=== PATIENT | male | born 1955 | race Caucasian/White ===

== ENCOUNTER 2023-01-05 13:54 | Observation (INO) ==
--- NOTE | 2023-01-05 14:32 | ED Triage Note ---
Date of Service January 05, 2023 History of Present Illness This patient was briefly evaluated while in triage. An abbreviated physical exam was performed. This patient is a 67-year-old Male who presents to the ED for evaluation of right arm and right leg numbness and tingling since 1150 today, no other neuro deficits, no anticoagulants, hx TIA 1 year ago. Pt describes feeling a little "lost and dizzy." stroke alert in triage, orders placed, pt transported to B1 Physical Exam CONSTITUTIONAL: in no acute pain or distress, resting comfortably SKIN: pink, warm, dry CARDIAC: regular rate and rhythm RESPIRATORY: in no respiratory distress, lungs clear to auscultation ABDOMEN:soft non-tender MSK: 5/5 strength in all limbs Neuro: right sided numbness and tingling upper and lower since 1150 today, no other focal deficits noted. Pt alert and oriented to time place and situation. Initial orders for labs and / or imaging were placed and patient was placed in the waiting area until a bed is available. Please see further documentation for the full ED course.
[2023-01-05] MEDS ORDERED: OPTIRAY 320 500ml IV ONE (14:52)
[2023-01-05 14:57] LABS: iSTAT Creatinine 1.3 mg/dl (0.6-1.3); iSTAT Hemoglobin 13.9 g/dl (14.0-18.0); iSTAT Ionized Calcium 1.2 mmol/l (1.12-1.32); iSTAT Potassium 3.9 mmol/L (3.3-5.0)
[2023-01-05 15:03] LABS: Basophils # (auto) 0.05 K/uL (0.00-0.20); Basophils % (auto) 0.5 %; Eosinophils # (auto) 0.25 K/uL (0.00-0.50); Eosinophils % (auto) 2.6 %; Hemoglobin 13.4 g/dl (14.0-18.0); Immature Granulocytes # (auto) 0.04 K/uL (0.01-0.20); Immature Granulocytes % (auto) 0.4 %; Lymphocytes # (auto) 2.68 K/uL (1.20-3.40); Lymphocytes % (auto) 28.3 %; Mean Corpuscular Hgb Conc 33.5 g/dL (32.0-36.0); Mean Corpuscular Volume 86.6 fL (80.0-100.0); Mean Platelet Volume 9.7 fL (9.4-12.4); Monocytes # (auto) 0.65 K/uL (0.11-0.59); Monocytes % (auto) 6.9 %; Neutrophils % (auto) 61.3 %; Platelet Count 225 K/uL (130-400); RDW Coefficient of Variation 12.4 % (11.5-14.5); RDW Standard Deviation 39.2 fL (36.4-46.3); Red Blood Count 4.62 M/uL (4.70-6.10); White Blood Count 9.47 K/ul (4.8-10.8)
--- NOTE | 2023-01-05 15:06 | CT Scan Report ---
CT ANGIOGRAPHY OF THE NECK WITH CONTRAST CLINICAL HISTORY: neuro deficit, acute stroke suspected COMPARISON STUDY: No previous studies for comparison. Technique: CT angiography of the carotid and vertebral arteries was obtained using Optiray and 3D rec onstruction on an independent workstation. NASCET criteria was utilized. Automated exposure control was utilized for the study. A dose lowering technique was utilized adhering to the principles of ALA RA. Findings: Emphysema is incidentally noted within the visualized lung apices. There is no cervical lym phadenopathy. No cervical spine fractures are noted. There is no stenosis or dissection within the bi lateral common carotid, cervical internal carotid or vertebral arteries. There is mild plaque within bilateral carotid bifurcations without stenosis. There is no aneurysm within the neck. IMPRESSION: 1. No stenosis or dissection within the bilateral common carotid, cervical internal carotid or verteb ral arteries. 2. Emphysema. ACT 112: Negative or not required by law. Electronically signed by: Cesario Danielson M.D. 01/05/2023 3:05 PM
--- NOTE | 2023-01-05 15:12 | CT Scan Report ---
CT angio head w con, CT head/brain wo con CLINICAL HISTORY: neuro deficit, acute stroke suspected TECHNIQUE: Contiguous axial CT images of the head were acquired from the base of the skull to the ronnie sanjiv without intravenous contrast administration. CT angiography of the head was performed following intravenous administration of iodinated contrast. Coronal and sagittal MIPS were obtained from the ax ial data set and were submitted for review. Automated dose lowering techniques and/or adjustment acc ording to patient size were utilized for this examination. All measurements were calculated based on NASCET criteria. CT DOSE: 1325.73 mGy.cm Comparison: None available at the time of this dictation. FINDINGS: CT head: There is no acute intracranial hemorrhage or evidence of acute territorial infarction. No sh ift of the midline structures, mass effect, or extra-axial abnormalities are shown. A few punctate re gions of decreased density may represent old lacunar infarcts and changes of microvascular ischemic w elke matter disease. CTA Head: The anterior and posterior cerebral circulations are patent. No hemodynamically significan t stenosis, aneurysm, dissection, or arteriovenous malformation is shown. IMPRESSION: There are a few punctate foci of decreased attenuation in the brain which may represent old infarcts, although punctate acute infarct cannot be entirely excluded. No significant vascular stenosis is see n. Assessment of stenosis of the internal carotid arteries is based on NASCET criteria. ACT 112: Negative or not required by law. Electronically signed by: Mark Tellez M.D. 01/05/2023 3:10 PM
[2023-01-05 15:14] LABS: INR 0.9 (0.9-1.1); Partial Thromboplastin Time 27.3 Seconds (21.0-31.0); Prothrombin Time 10.4 Seconds (9.0-12.0)
[2023-01-05 15:22] LABS: Albumin Level 4.3 gm/dl (3.4-5.0); Bilirubin,Total 0.4 mg/dl (0.2-1.0); Calcium 9.6 mg/dl (8.6-10.3); Magnesium 1.6 mg/dl (1.7-2.4); Potassium 3.9 mmol/L (3.5-5.1)
[2023-01-05 15:28] LABS: Albumin Globulin Ratio 1.6 (0.9-2); Creatinine Clr Calc Pharmacy 66.7 ml/min; Est GFR (African American) 65.9 ml/min; Est GFR (Non-African American) 56.9 ml/min; Globulin 2.7 gm/dl (2.5-4.0)
[2023-01-05 15:30] LABS: Troponin I High Sensitivity 6.6 pg/ml (0-20)
--- NOTE | 2023-01-05 15:40 | History & Physical Report ---
Date of Service January 05, 2023 Assessment & Plan (1) Stroke-like symptoms: Plan: Patient is 67 y/o M with PMH CVA in 2020, HTN, HLD, DM II, COPD, GERD, tobacco use presented to ER with complaint of right finger and right toe numbness started at 11:50 until 14:30 today. Currently with complete symptom resolution CT Head, CTA Head: There are a few punctate foci of decreased attenuation in the brain which may represent old infarcts, although punctate acute infarct cannot be entirely excluded. No significant vascular stenosis is seen. CTA Neck: No stenosis or dissection within the bilateral common carotid, cervical internal carotid or vertebral arteries. HS Troponin negative 06/12/2022 MRI brain: Bilateral cerebellar hemisphere small remote territorial infarcts. Subtle sulcal susceptibility overlying bilateral cerebral hemispheres, which may represent developing superficial siderosis 08/2020 MRI brain: Multifocal patchy foci of acute/early subacute ischemia left lentiform nucleus, frye radiata, left frontal subcortical white matter without significant mass effect or acute intracranial hemorrhage. Tele to monitor for arrhythmias Lipids, A1c, TSH in am MRI brain Echo with bubble study Aspiration, fall precautions PT/OT consult Continue aspirin, atorvastatin Neurology consult Pt has planned Loop recorder 01/25/[address] Coker to further assess for a-fib (2) Hypomagnesemia: Plan: Magnesium: 1.6 Replace and monitor (3) Diabetes mellitus, type II: Plan: Unknown A1c Hold metformin Novolog sliding scale per protocol (4) Hypertension: Plan: Continue lisinopril, lasix (5) COPD (chronic obstructive pulmonary disease): Plan: Emphysema No signs exacerbation Not on inhalers (6) Tobacco use: Plan: Smoking cessation recommended, is trying to cut back Nicotine patch (7) PTSD (post-traumatic stress disorder): Plan: Continue bupropion DVT Prophylaxis SCDs Full Code as per discussion with pt Follows with Dr Mata for routine care Pt was seen and care coordinated with Dr Luther. See addendum History of Present Illness Chief Complaint: Numbness Primary Care Provider: Sarabjit Mata MD Patient is 67 y/o M with PMH CVA in 2020, HTN, HLD, DM II, COPD, GERD, tobacco use presented to ER with complaint of right finger and right toe numbness. History obtained from patient and outpatient chart review. Patient reports today had sudden onset of tingling/numbness sensation to all of right fingers and all of his toes on right foot that started at 11:50. Patient reports paresthesia symptoms continued until 14:30 today. Patient states today while standing he did feel a little "woozy". Denies any associated headache, syncope, vision changes, extremity weakness, speech changes. Reports intermittent left sided chest pain over past 6 months that can occur at rest or exertion. Pain described as sharp and lasts approximately 5-10 minutes and resolves. Followed with cardiology, Dr [facility] [place] and had negative stress test. States had episode left chest discomfort this morning that lasted 10 minutes and resolved and not associated with SOB, N/V, palpitations. No recurrent CP. Has chronic cough, intermittently productive sputum. denies increased cough or sputum production. Denies fever/chills, diaphoresis, N/V/D/C, LOPEZ, vision changes, neck pain, SOB, palpitations, rhinorrhea, abdominal pain, extremity weakness, extremity edema, rashes, urinary symptoms. Outpatient chart review: 11/26/2022 had negative dobutamine stress echo for ischemia. EF: 67%. Is to have implanted loop recorder 01/25/[address] Coker to further assess for a-fib. 06/12/2022 MRI brain: Bilateral cerebellar hemisphere small remote territorial infarcts. Subtle sulcal susceptibility overlying bilateral cerebral hemispheres, which may represent developing superficial siderosis 08/21/2020 MRI brain: Multifocal patchy foci of acute/early subacute ischemia left lentiform nucleus, frye radiata, left frontal subcortical white matter without significant mass effect or acute intracranial hemorrhage. Allergies Allergy/AdvReac Type Severity Reaction Status Date / Time No Known Allergies Allergy Verified 01/05/23 14:58 Home Medications Medication Instructions Recorded Confirmed Type bupropion HCl 150 mg tablet,12 hr 150 mg PO BID 11/24/18 01/05/23 History sustained-release aspirin 81 mg tablet,delayed 81 mg PO DAILY 01/05/23 01/05/23 History release atorvastatin 80 mg tablet (Lipitor) 40 mg PO HS 01/05/23 01/05/23 History cholecalciferol (vitamin D3) 25 25 mcg PO DAILY 01/05/23 01/05/23 History mcg (1,000 unit) capsule (Vitamin D3) diclofenac sodium 1 % topical gel 2 g topical TID PRN Pain 01/05/23 01/05/23 History furosemide 20 mg tablet (Lasix) 10 mg PO DAILY 01/05/23 01/05/23 History lisinopril 40 mg tablet 40 mg PO DAILY 01/05/23 01/05/23 History metformin 500 mg tablet 500 mg PO BID 01/05/23 01/05/23 History Past Med/Surg History Medical History (Updated 01/05/23 @ 17:03 by Joan Huitron PA-C) HLD (hyperlipidemia) GERD (gastroesophageal reflux disease) Diabetes mellitus, type II Tobacco use COPD (chronic obstructive pulmonary disease) Lumbosacral facet joint syndrome Spinal stenosis of lumbar region Lumbago Lumbosacral radiculopathy Lumbosacral spondylosis CVA (cerebral vascular accident) PTSD (post-traumatic stress disorder) Surgical History History of colonoscopy Social History Smoking Status: Current every day smoker Tobacco Type: Cigarettes Age Started Using Tobacco: 19; packs per day: 1; Hx Alcohol Use: No Hx Substance Use: No marital status: Single Current Living Situation: Alone current occupational status: retired Feels Safe at Home: Yes Review of Systems Review of Systems: All systems reviewed & are unremarkable except as noted in HPI & below Physical Exam Physical Exam: General: no distress, WDWN Head: normocephalic, atraumatic Eyes: PERRL, EOM's intact, conjunctiva non-injected, anicteric ENT: normal inspection external ears, nose, mucous membranes moist Neck: supple, trachea midline Lungs: clear, no respiratory distress, no wheezing/rhonchi/rales CV: RRR, no murmur, no pretibial edema Abd: normal BS, soft, non-tender Ext: no cyanosis, no calf tenderness Neuro: A&O x 3, normal affect, EOMs intact. No nystagmus, facial sensation is intact and symmetric, face is strong and symmetric, hearing grossly intact, soft palate elevates symmetrically, no dysarthria, shoulder shrug intact, tongue is midline, normal movement, no fasciculations, strength 5/5 throughout bilateral upper and lower extremities Skin: warm, dry Results & Data Results & Data Vital Signs (Past 12 Hours) Vital Signs Temp Pulse Pulse Resp BP BP Pulse Ox 01/05/23 15:25 72 16 119/66 96 01/05/23 15:02 80 20 140/76 97 01/05/23 14:54 86 01/05/23 14:44 01/05/23 14:40 83 20 131/79 96 01/05/23 14:25 36.6 C 88 16 135/77 95 O2 Del Method 01/05/23 15:25 Room Air 01/05/23 15:02 Room Air 01/05/23 14:54 01/05/23 14:44 Room Air 01/05/23 14:40 Room Air 01/05/23 14:25 Room Air Laboratory Results Short CBC 01/05/23 Range/Units 14:42 WBC 9.47 (4.8-10.8) K/ul Hgb 13.4 L (14.0-18.0) g/dl Hct 40.0 L (42.0-52.0) % Plt Count 225 (130-400) K/uL BMP 01/05/23 14:42 Sodium 136 Potassium 3.9 Chloride 102 Carbon Dioxide 26 BUN 13 Creatinine 1.30 Glucose 151 H Calcium 9.6 Liver Function 01/05/23 Range/Units 14:42 Total Bilirubin 0.4 (0.2-1.0) mg/dl AST 16 (13-39) U/L ALT 18 (7-52) U/L Alkaline Phosphatase 104 (34-104) U/L Albumin 4.3 (3.4-5.0) gm/dl Diagnostic Findings Head CT 01/05/23 14:33 CT angio head w con, CT head/brain wo con CLINICAL HISTORY: neuro deficit, acute stroke suspected TECHNIQUE: Contiguous axial CT images of the head were acquired from the base of the skull to the vertex without intravenous contrast administration. CT angiography of the head was performed following intravenous administration of iodinated contrast. Coronal and sagittal MIPS were obtained from the axial data set and were submitted for review. Automated dose lowering techniques and/or adjustment according to patient size were utilized for this examination. All measurements were calculated based on NASCET criteria. CT DOSE: 1325.73 mGy.cm Comparison: None available at the time of this dictation. FINDINGS: CT head: There is no acute intracranial hemorrhage or evidence of acute territorial infarction. No shift of the midline structures, mass effect, or extra-axial abnormalities are shown. A few punctate regions of decreased density may represent old lacunar infarcts and changes of microvascular ischemic white matter disease. CTA Head: The anterior and posterior cerebral circulations are patent. No hemod ynamically significant stenosis, aneurysm, dissection, or arteriovenous malformation is shown. IMPRESSION: There are a few punctate foci of decreased attenuation in the brain which may represent old infarcts, although punctate acute infarct cannot be entirely excluded. No significant vascular stenosis is seen. Assessment of stenosis of the internal carotid arteries is based on NASCET criteria. ACT 112: Negative or not required by law. Electronically signed by: Mark Tellez M.D. 01/05/2023 3:10 PM Head CTA 01/05/23 14:33 CT angio head w con, CT head/brain wo con CLINICAL HISTORY: neuro deficit, acute stroke suspected TECHNIQUE: Contiguous axial CT images of the head were acquired from the base of the skull to the vertex without intravenous contrast administration. CT angiography of the head was performed following intravenous administration of iodinated contrast. Coronal and sagittal MIPS were obtained from the axial data set and were submitted for review. Automated dose lowering techniques and/or adjustment according to patient size were utilized for this examination. All measurements were calculated based on NASCET criteria. CT DOSE: 1325.73 mGy.cm Comparison: None available at the time of this dictation. FINDINGS: CT head: There is no acute intracranial hemorrhage or evidence of acute territorial infarction. No shift of the midline structures, mass effect, or extra-axial abnormalities are shown. A few punctate regions of decreased density may represent old lacunar infarcts and changes of microvascular ischemic white matter disease. CTA Head: The anterior and posterior cerebral circulations are patent. No hemodynamically significant stenosis, aneurysm, dissection, or arteriovenous malformation is shown. IMPRESSION: There are a few punctate foci of decreased attenuation in the brain which may represent old infarcts, although punctate acute infarct cannot be entirely excluded. No significant vascular stenosis is seen. Assessment of stenosis of the internal carotid arteries is based on NASCET criteria. ACT 112: Negative or not required by law. Electronically signed by: Mark Tellez M.D. 01/05/2023 3:10 PM Neck CTA 01/05/23 14:33 CT ANGIOGRAPHY OF THE NECK WITH CONTRAST CLINICAL HISTORY: neuro deficit, acute stroke suspected COMPARISON STUDY: No previous studies for comparison. Technique: CT angiography of the carotid and vertebral arteries was obtained using Optiray and 3D reconstruction on an independent workstation. NASCET criteria was utilized. Automated exposure control was utilized for the study. A dose lowering technique was utilized adhering to the principles of ALARA. Findings: Emphysema is incidentally noted within the visualized lung apices. There is no cervical lymphadenopathy. No cervical spine fractures are noted. There is no stenosis or dissection within the bilateral common carotid, cervical internal carotid or vertebral arteries. There is mild plaque within bilateral carotid bifurcations without stenosis. There is no aneurysm within the neck. IMPRESSION: 1. No stenosis or dissection within the bilateral common carotid, cervical internal carotid or vertebral arteries. 2. Emphysema. ACT 112: Negative or not required by law. Electronically signed by: Cesario Danielson M.D. 01/05/2023 3:05 PM ECG Additional Comments: sinus rhythm, rate 85, no significant ST changes per my interpretation Supervising Physician Co-Signing Physician Notes I have seen and discussed the case with the collaborating ISAAC. I agree with the above H&P. I have reviewed and confirmed the patients medical history, the findings on physical examination, and the patients diagnosis and treatment plan with [facility] and agree with the information documented. In short, Mr. Lock is a 67 year old gentleman with history of CVA who presented to ED due to neuro symptoms characterized by numbness/tinging in right fingers and toes. T he symptoms resolved upon evaluation. Patient has history of transient neuro symptoms, and recent MRI in 05/2022 revealed from scattered infarcts and changes described as "superficial siderosis" PE was unremarkable for any neurodeficits and patient was observed ambulating without any gait disturbance appreciated. #Transient Neurosymptoms -Neurology consult ASA, Statin -Monitor on telemetry -MRI to compare to prior study Rest of plan as above :3 COMPARISON: BRAIN MR WITHOUT CONTRAST dated 08/21/2020. FINDINGS: Motion artifact. Bilateral cerebellar hemisphere small remote territorial infarcts, new compared with 08/2020 brain MR. Patchy and confluent cerebral white matter T2/FLAIR hyperintense foci are present, which are nonspecific but compatible with moderate microvascular ischemic changes, and which are greater in extent/number than expected for stated age; these foci are increased compared with 08/2020. Subtle sulcal susceptibility overlying bilateral cerebral hemispheres, new compared with August 2020, which may represent developing superficial siderosis. The ventricles and sulci are otherwise symmetrically enlarged, representing chronic volume loss. The brain parenchyma is otherwise normal in signal, without hemorrhage, mass effect, midline shift, or mass lesion. No restricted diffusion is present. The basal cisterns are patent. No abnormal intra- or extra-axial fluid collections are present. Intracranial arterial flow voids are suboptimally evaluated due to slice selection artifact and motion artifact, but are otherwise grossly normal. The soft tissues of the head are grossly unremarkable. Bilateral orbits are grossly normal. The cranium and skull base are grossly normal. Trace (< 3 mm) bilateral ethmoid air cell and bilateral maxillary sinus mucosal thickening. The included paranasal sinuses are otherwise clear. Moderate left mastoid opacification; no right mastoid air cell or bilateral middle ear opacification i s present. IMPRESSION IMPRESSION: 1. No acute intracranial abnormality. No restricted diffusion concerning for acute CVA. 2. Bilateral cerebellar hemisphere small remote territorial infarcts, new compared with 08/2020 brain MR. 3. Patchy/confluent nonspecific cerebral white matter T2/FLAIR hyperintense foci, compatible with moderate microvascular ischemic changes, greater in extent/number than expected for stated age. Foci are increased compared with 08/2020. 4. Subtle sulcal susceptibility overlying bilateral cerebral hemispheres, new compared with August 2020, which may represent developing superficial siderosis. 5. Chronic brain parenchymal volume loss. This case was submitted to the Radiology Pouncing Machine Operator (BILLING AND ACCOUNTING STAFF ASSISTANT): Unexpected or Indeterminate Result.
--- NOTE | 2023-01-05 15:56 | Electrocardiogram Report ---
Test Reason : Blood Pressure : / mmHG Vent. Rate : 085 BPM Atrial Rate : 085 BPM P-R Int : 160 ms QRS Dur : 110 ms QT Int : 402 ms P-R-T Axes : 035 054 054 degrees QTc Int : 478 ms Normal sinus rhythm Normal ECG No previous ECGs available Confirmed by Huseyin Fuentes ([id number]) on 01/05/2023 3:56:32 PM Referred By: REFERRED SELF Confirmed By:Huseyin Fuentes
[2023-01-05] MEDS ORDERED: ASPIRIN 81 MG CHEW PO ONE (16:29)
[2023-01-05] MEDS ORDERED: POLYETHYLENE (MIRALAX) 17 GM PACK PO PRN (18:29)
[2023-01-05] MEDS ORDERED: CARBOHYDRATES FOR HYPOGLYCEMIA PO PRN (18:29)
[2023-01-05] MEDS ORDERED: PHARMACIST DISCHARGE MED REC CONSULT PRN (18:29)
[2023-01-05] MEDS ORDERED: MAGNESIUM SULFATE / D5W 1 GM/100 ML BAG IV ONE (18:29)
[2023-01-05] MEDS ORDERED: GLUCAGON FOR INJ 1 MG VIAL SQ PRN (18:29)
[2023-01-05] MEDS ORDERED: GLUCOSE 10 TAB/TUBE PO PRN (18:29)
[2023-01-05] MEDS ORDERED: ONDANSETRON INJ 2 MG/ML 2 ML VIAL IV PRN (18:29)
[2023-01-05] MEDS ORDERED: DEXTROSE 50% 50 ML SYRINGE IV PRN (18:29)
[2023-01-05] MEDS ORDERED: GLUCOSE 40% GEL 15 GM TUBE PO PRN (18:29)
[2023-01-05] MEDS ORDERED: ACETAMINOPHEN 325 MG TAB PO PRN (18:29)
[2023-01-05] MEDS ORDERED: MAGNESIUM SULFATE 1GM / D5W BAG IV ONE (18:33)
[2023-01-05] MEDS ORDERED: NICOTINE 21 MG/24 HR TDSY TD ONE (18:33)
[2023-01-05] MEDS: NICOTINE 21 MG/24 HR TDSY TD SCH (18:34)
--- NOTE | 2023-01-05 20:39 | ED Triage Note ---
Date of Service January 05, 2023 History of Present Illness This patient was briefly evaluated while in triage. An abbreviated physical exam was performed. This patient is a 67-year-old Male who presents to the ED for evaluation of []. Physical Exam Initial orders for labs and / or imaging were placed and patient was placed in the waiting area until a bed is available. Please see further documentation for the full ED course.
[2023-01-05] MEDS: INSULIN ASPART PER UNIT CHARGE SC SCH (20:51)
[2023-01-05] MEDS ORDERED: ATORVASTATIN 40 MG TAB PO SCH (21:00)
[2023-01-05] MEDS: buPROPion SR 150 MG TABCR PO SCH (21:10)
--- NOTE | 2023-01-05 21:19 | Emergency Department Note ---
History of Present Illness General Chief complaint: Neuro Symptoms/Deficit Stated complaint: RT HAND/FOOT NUMBNESS, HYPERTENSION, DIZZY Time Seen by Provider: 01/05/23 14:39 History of Present Illness Provider complaint: Numbness Maximum Pain Intensity: 0 67-year-old male presents emergency department for numbness. Patient reports that at 11:45 AM he was driving and started having numbness over his right upper and right lower extremities. No difficulty walking. No difficulty talking. No changes in vision. No headache. No blood thinners. History of TIA stroke and OR. Home Medications Medication Instructions Recorded Confirmed Type bupropion HCl 150 mg tablet,12 hr 150 mg PO BID 11/24/18 01/05/23 History sustained-release aspirin 81 mg tablet,delayed 81 mg PO DAILY 01/05/23 01/05/23 History release atorvastatin 80 mg tablet (Lipitor) 40 mg PO HS 01/05/23 01/05/23 History cholecalciferol (vitamin D3) 25 25 mcg PO DAILY 01/05/23 01/05/23 History mcg (1,000 unit) capsule (Vitamin D3) diclofenac sodium 1 % topical gel 2 g topical TID PRN Pain 01/05/23 01/05/23 History furosemide 20 mg tablet (Lasix) 10 mg PO DAILY 01/05/23 01/05/23 History lisinopril 40 mg tablet 40 mg PO DAILY 01/05/23 01/05/23 History metformin 500 mg tablet 500 mg PO BID 01/05/23 01/05/23 History Allergies Allergy/AdvReac Type Severity Reaction Status Date / Time No Known Allergies Allergy Verified 01/05/23 14:58 Past Med/Surg History Medical History HLD (hyperlipidemia) GERD (gastroesophageal reflux disease) Diabetes mellitus, type II Tobacco use COPD (chronic obstructive pulmonary disease) Lumbosacral facet joint syndrome Spinal stenosis of lumbar region Lumbago Lumbosacral radiculopathy Lumbosacral spondylosis CVA (cerebral vascular accident) PTSD (post-traumatic stress disorder) Surgical History History of colonoscopy Social History Smoking Status: Current every day smoker Tobacco Type: Cigarettes Age Started Using Tobacco: 19; packs per day: 1; Do You Dip or Chew Tobacco: No; Hx Alcohol Use: No Hx Substance Use: No Preferred Language: Jamaican Communication Ability: Effective Security Business Analyst Required: No marital status: Single Current Living Situation: Alone current occupational status: retired Other Information That Helps Us Care for You: No Feels Safe at Home: Yes Safety Concerns: Feels Safe At This Time Assistive Devices: CPAP and Glasses Physical Exam Vital Signs Vital Signs - 24 hr 01/05/23 14:25 01/05/23 14:40 01/05/23 14:44 Temperature 36.6 C Temperature Source Temporal Artery Scan Pulse Rate 88 Pulse Rate [Apical] 83 Respiratory Rate 16 20 Respiratory Effort / Characteristics Non-Labored Spontaneous Respiratory Depth Normal Respiratory Pattern Regular Blood Pressure 135/77 Blood Pressure [Left Arm] 131/79 Blood Pressure Mean 96 Blood Pressure Mean [Left Arm] 96 Pulse Oximetry 95 96 Oxygen Delivery Method Room Air Room Air Room Air Sepsis Recent Fever Within 48 Hours No Sepsis New/Unexplained Change in Mental Status No Sepsis Action Taken by Nursing No Action Required 01/05/23 14:54 01/05/23 15:02 01/05/23 15:25 Temperature Temperature Source Pulse Rate 86 Pulse Rate [Apical] 80 72 Respiratory Rate 20 16 Respiratory Effort / Characteristics Non-Labored Spontaneous Respiratory Depth Normal Respiratory Pattern Regular Blood Pressure Blood Pressure [Left Arm] 140/76 119/66 Blood Pressure Mean Blood Pressure Mean [Left Arm] 97 83 Pulse Oximetry 97 96 Oxygen Delivery Method Room Air Room Air Sepsis Recent Fever Within 48 Hours Sepsis New/Unexplained Change in Mental Status Sepsis Action Taken by Nursing Physical Exam GENERAL: He is oriented to person, place, and time. He appears well-developed and well-nourished. He does not appear distressed. HENT: Exam performed. - Head: Normocephalic and atraumatic. - Right Ear: External ear normal. No mastoid erythema - Left Ear: External ear normal. No mastoid erythema - Mouth/Throat: The oropharynx is clear and moist. No trismus in the jaw. No dental abscesses or uvula swelling. No oropharyngeal exudate or tonsillar abscesses. EYES: Conjunctivae and EOM are normal. Pupils are equal, round, and reactive to light. Right eye exhibits no discharge. Left eye exhibits no discharge. No scleral icterus. NECK: Normal range of motion. Neck supple. No JVD present. No spinous process tenderness present. CV: Normal rate, regular rhythm, normal heart sounds and intact distal pulses. There is no peripheral edema. Palpable radial pulses bue. PULM/CHEST: Effort normal and breath sounds normal. No respiratory distress. No stridor. He has no wheezes. He has no rales. MUSC/SKEL: Normal range of motion. There is no peripheral edema, tenderness or deformity. NEURO: He is alert and oriented to person, place, and time. He has normal strength. No cranial nerve deficit or sensory deficit. Coordination and gait normal. GCS eye subscore is 4. GCS verbal subscore is 5. GCS motor subscore is 6. Cerebellar tests wnl. NIHSS: 0 SKIN: Skin is warm and dry. He is not diaphoretic. PSYCH: He has a normal mood and affect. Behavior is normal. Judgment and thought content normal. Course Course 1439: The patient was evaluated in room B1. A complete history and physical exam was performed Cardiac monitoring: An order was placed for continuous cardiac monitoring. The monitor shows a rate of 80 with sinus rhythm interpreted by nc 1520: Vital signs stable. Imaging shows: There are a few punctate foci of decreased attenuation in the brain which may represent old infarcts, although punctate acute infarct cannot be entirely excluded. No significant vascular stenosis is seen. Will be admitted to the hospital service for stroke work-up and MRI. Currently NIHSS 0. Unsure if the patient had a TIA versus an old stroke. The case will not be given as patient has NIH stroke scale 0 and his symptoms improved. Administered Medications Atorvastatin Calcium (Atorvastatin 40 Mg Tab) 40 mg PO HS FELIX Stop: 02/04/23 20:59 Last Admin: 01/05/23 21:10 Dose: 40 mg Documented By: JORGE Bupropion HCl (Bupropion Sr 150 Mg Tabcr) 150 mg PO BID FELIX Stop: 02/04/23 20:59 Last Admin: 01/05/23 21:10 Dose: 150 mg Documented By: JORGE Insulin Aspart (Insulin Aspart Per Unit Charge) 0 units SC ACHS FELIX Stop: 02/04/23 20:59 Last Admin: 01/05/23 20:51 Dose: Not Given Documented By: JORGE Co-signed By: DANIEL Nicotine (Nicotine 21 Mg/24 Hr Tdsy) 21 mg TD QAM FELIX Stop: 02/04/23 18:28 Last Admin: 01/05/23 18:34 Dose: Not Given Documented By: ASW Discontinued Medications Aspirin (Aspirin 81 Mg Chew) 243 mg PO ONE ONE Stop: 01/05/23 16:30 Last Admin: 01/05/23 16:34 Dose: 243 mg Documented By: ASW Magnesium Sulfate/Dextrose (Magnesium Sulfate / D5w) 1 gm in 100 mls @ 50 mls/hr IV ONE ONE Stop: 01/05/23 20:28 Last Admin: 01/05/23 18:34 Dose: Not Given Documented By: ASW Ioversol (Optiray 320 500ml) 108 ml IV ONCE ONE Stop: 01/05/23 14:53 Last Admin: 01/05/23 14:55 Dose: 108 ml Documented By: BAMBI Magnesium Sulfate/Dextrose (Magnesium Sulfate 1gm / D5w Bag) Confirm Administered Dose 1 gm IV .STK-MED ONE Stop: 01/05/23 18:34 Last Admin: 01/05/23 18:34 Dose: 1 gm Documented By: ASW Nicotine (Nicotine 21 Mg/24 Hr Tdsy) Confirm Administered Dose 21 mg TD .STK-MED ONE Stop: 01/05/23 18:34 Last Admin: 01/05/23 18:34 Dose: 21 mg Documented By: ALBERTOW Medical Decision Making Laboratory Data Attestation: I reviewed the patient's lab results. 01/05/23 14:42 01/05/23 14:42 Lab Results 01/05/23 01/05/23 01/05/23 Range/Units 14:40 14:42 14:45 WBC 9.47 (4.8-10.8) K/ul RBC 4.62 L (4.70-6.10) M/uL Hgb 13.4 L (14.0-18.0) g/dl POC Hgb 13.9 L (14.0-18.0) g/dl Hct 40.0 L (42.0-52.0) % POC Hct 41 L (42-52) % MCV 86.6 (80.0-100.0) fL MCH 29.0 (25.0-34.0) pg MCHC 33.5 (32.0-36.0) g/dL RDW Std Deviation 39.2 (36.4-46.3) fL RDW Coeff of Alem 12.4 (11.5-14.5) % Plt Count 225 (130-400) K/uL MPV 9.7 (9.4-12.4) fL Immature Gran % (Auto) 0.4 % Neut % (Auto) 61.3 % Lymph % (Auto) 28.3 % Wilcox % (Auto) 6.9 % Eos % (Auto) 2.6 % Baso % (Auto) 0.5 % Neut # (Auto) 5.80 (1.40-6.50) K/uL Lymph # (Auto) 2.68 (1.20-3.40) K/uL Wilcox # (Auto) 0.65 H (0.11-0.59) K/uL Eos # (Auto) 0.25 (0.00-0.50) K/uL Baso # (Auto) 0.05 (0.00-0.20) K/uL Immature Gran # (Auto) 0.04 (0.01-0.20) K/uL PT 10.4 (9.0-12.0) Seconds INR 0.9 (0.9-1.1) APTT 27.3 (21.0-31.0) Seconds PTT Ratio 1.0 POC Sodium 137 (135-144) mmol/L Sodium 136 (136-145) mmol/L POC Potassium 3.9 (3.3-5.0) mmol/L Potassium 3.9 (3.5-5.1) mmol/L POC Chloride 100 L (101-112) mmol/L Chloride 102 (98-107) mmol/L Carbon Dioxide 26 (21-32) mmol/L POC Total CO2 23 L (24-31) mmol/L Anion Gap 8 (3-11) POC Anion Gap 18.0 (16-25) mmol/L POC BUN 13 (7-18) mg/dl BUN 13 (6-23) mg/dl Creatinine 1.30 (0.6-1.4) mg/dl POC Creatinine 1.3 (0.6-1.3) mg/dl Est Cr Clr Drug Dosing 66.7 ml/min Est GFR ( Amer) 65.9 ml/min Est GFR (Non-Af Amer) 56.9 ml/min BUN/Creatinine Ratio 10.0 (10-20) Glucose 151 H (70-99(Fasting)) mg/dl POC Glucose 164 H (70-99) mg/dl POC Glucose (other) 153 H (70-99) mg/dl Calcium 9.6 (8.6-10.3) mg/dl POC Ioniz Calcium Marni 1.20 (1.12-1.32) mmol/l Magnesium 1.6 L (1.7-2.4) mg/dl Total Bilirubin 0.4 (0.2-1.0) mg/dl AST 16 (13-39) U/L ALT 18 (7-52) U/L Alkaline Phosphatase 104 (34-104) U/L Troponin I High Sens 6.6 (0-20) pg/ml Total Protein 7.0 (6.0-8.3) gm/dl Albumin 4.3 (3.4-5.0) gm/dl Globulin 2.7 (2.5-4.0) gm/dl Albumin/Globulin Ratio 1.6 (0.9-2) Blood Type O Positive Antibody Screen NEGATIVE Imaging Data Radiologist's Impression: Head CT 01/05/23 14:33 CT angio head w con, CT head/brain wo con CLINICAL HISTORY: neuro deficit, acute stroke suspected TECHNIQUE: Contiguous axial CT images of the head were acquired from the base of the skull to the vertex without intravenous contrast administration. CT angiography of the head was performed following intravenous administration of iodinated contrast. Coronal and sagittal MIPS were obtained from the axial data set and were submitted for review. Automated dose lowering techniques and/or adjustment according to patient size were utilized for this examination. All measurements were calculated based on NASCET criteria. CT DOSE: 1325.73 mGy.cm Comparison: None available at the time of this dictation. FINDINGS: CT head: There is no acute intracranial hemorrhage or evidence of acute territorial infarction. No shift of the midline structures, mass effect, or extra-axial abnormalities are shown. A few punctate regions of decreased density may represent old lacunar infarcts and changes of microvascular ischemic white matter disease. CTA Head: The anterior and posterior cerebral circulations are patent. No hemodynamically significant stenosis, aneurysm, dissection, or arteriovenous malformation is shown. IMPRESSION: There are a few punctate foci of decreased attenuation in the brain which may represent old infarcts, although punctate acute infarct cannot be entirely excluded. No significant vascular stenosis is seen. Assessment of stenosis of the internal carotid arteries is based on NASCET criteria. ACT 112: Negative or not required by law. Electronically signed by: Mark Tellez M.D. 01/05/2023 3:10 PM Head CTA 01/05/23 14:33 CT angio head w con, CT head/brain wo con CLINICAL HISTORY: neuro deficit, acute stroke suspected TECHNIQUE: Contiguous axial CT images of the head were acquired from the base of the skull to the vertex without intravenous contrast administration. CT angiography of the head was performed following intravenous administration of iodinated contrast. Coronal and sagittal MIPS were obtained from the axial data set and were submitted for review. Automated dose lowering techniques and/or adjustment according to patient size were utilized for this examination. All measurements were calculated based on NASCET criteria. CT DOSE: 1325.73 mGy.cm Comparison: None available at the time of this dictation. FINDINGS: CT head: There is no acute intracranial hemorrhage or evidence of acute territorial infarction. No shift of the midline structures, mass effect, or extra-axial abnormalities are shown. A few punctate regions of decreased density may represent old lacunar infarcts and changes of microvascular ischemic white matter disease. CTA Head: The anterior and posterior cerebral circulations are patent. No hemodynamically significant stenosis, aneurysm, dissection, or arteriovenous malformation is shown. IMPRESSION: There are a few punctate foci of decreased attenuation in the brain which may represent old infarcts, although punctate acute infarct cannot be entirely excluded. No significant vascular stenosis is seen. Assessment of stenosis of the internal carotid arteries is based on NASCET criteria. ACT 112: Negative or not required by law. Electronically signed by: Mark Tellez M.D. 01/05/2023 3:10 PM Neck CTA 01/05/23 14:33 CT ANGIOGRAPHY OF THE NECK WITH CONTRAST CLINICAL HISTORY: neuro deficit, acute stroke suspected COMPARISON STUDY: No previous studies for comparison. Technique: CT angiography of the carotid and vertebral arteries was obtained using Optiray and 3D reconstruction on an independent workstation. NASCET criteria was utilized. Automated exposure control was utilized for the study. A dose lowering technique was utilized adhering to the principles of ALARA. Findings: Emphysema is incidentally noted within the visualized lung apices. There is no cervical lymphadenopathy. No cervical spine fractures are noted. There is no stenosis or dissection within the bilateral common carotid, cervical internal carotid or vertebral arteries. There is mild plaque within bilateral carotid bifurcations without stenosis. There is no aneurysm within the neck. IMPRESSION: 1. No stenosis or dissection within the bilateral common carotid, cervical internal carotid or vertebral arteries. 2. Emphysema. ACT 112: Negative or not required by law. Electronically signed by: Cesario Danielson M.D. 01/05/2023 3:05 PM ECG Data Attestation: I personally reviewed and interpreted this ECG as follows: Rate (beats per minute): 85 Rhythm: + normal sinus ECG Intervals/blocks: + Normal QRS, + Normal MN and + Normal QT-c ECG ST segments: + Normal ST segments [facility] Narrative 1439: The patient was evaluated in room B1. A complete history and physical exam was performed Cardiac monitoring: An order was placed for continuous cardiac monitoring. The monitor shows a rate of 80 with sinus rhythm interpreted by me 1520: Vital signs stable. Imaging shows: There are a few punctate foci of decreased attenuation in the brain which may represent old infarcts, although punctate acute infarct cannot be entirely excluded. No significant vascular stenosis is seen. Will be admitted to the hospital service for stroke work-up and MRI. Currently NIHSS 0. Unsure if the patient had a TIA versus an old stroke. The case will not be given as patient has NIH stroke scale 0 and his symptoms improved. Impression & Plan Stroke-like symptoms Discharge Plan Visit Data Chief Complaint: Neuro Symptoms/Deficit Stated Complaint: RT HAND/FOOT NUMBNESS, HYPERTENSION, DIZZY ED Provider: Mauro Vang Discharge Problem: Stroke-like symptoms Patient Disposition: Admitted As Inpatient Discharge Instructions Interventions: ED Discharge Assessment Last Done: 01/05/23 18:30
[2023-01-06 05:17] LABS: BUN Creatinine Ratio 11.2 (10-20); Calcium 9.4 mg/dl (8.6-10.3); Chol HDL Ratio 3.7 (0-5); Creatinine Clr Calc Pharmacy 69.4 ml/min; Est GFR (African American) 69.1 ml/min; Est GFR (Non-African American) 59.6 ml/min; Magnesium 1.9 mg/dl (1.7-2.4); Potassium 4.1 mmol/L (3.5-5.1)
[2023-01-06 05:30] LABS: Hematocrit (blood only) 41.1 % (42.0-52.0); Hemoglobin 13.6 g/dl (14.0-18.0); Mean Corpuscular Hemoglobin 28.9 pg (25.0-34.0); Mean Corpuscular Hgb Conc 33.1 g/dL (32.0-36.0); Mean Corpuscular Volume 87.3 fL (80.0-100.0); Mean Platelet Volume 9.9 fL (9.4-12.4); Platelet Count 213 K/uL (130-400); RDW Coefficient of Variation 12.2 % (11.5-14.5); RDW Standard Deviation 39.1 fL (36.4-46.3); Red Blood Count 4.71 M/uL (4.70-6.10); White Blood Count 9.24 K/ul (4.8-10.8)
[2023-01-06 05:31] LABS: Thyroid Stimulating Hormone 4.917 uIu/ml (0.300-4.500)
[2023-01-06 06:06] LABS: T4 Free Thyroxine 0.74 ng/dl (0.61-1.60)
[2023-01-06 07:20] LABS: Estimated Average Glucose 151 mg/dl; Hemoglobin A1C 6.9 % (4.5-5.6)
--- NOTE | 2023-01-06 07:58 | Magnetic Resonance Report ---
MR brain wo con CLINICAL HISTORY: stroke symptoms TECHNIQUE: Multiplanar and multisequence MR images of the brain were obtained without intravenous con trast. Comparison: Comparison is made to CTA head and neck 01/05/2023 FINDINGS: No abnormal restricted diffusion is identified. Foci of T2 and FLAIR hyperintensity are noted in the paraventricular areas consistent with chronic small vessel ischemic disease. Ex vacuo ventriculomegal y and sulcal enlargement is noted compatible with diffuse volume loss. No mass is seen. There is no m ass effect or midline shift. There is no evidence of acute intraparenchymal hemorrhage. No extra axia l fluid collections are seen. The corpus callosum, pituitary gland, and cerebellar tonsils appear nima ssly unremarkable. Flow voids of the major intracranial arterial vessels are identified. The imaged portions of the para nasal sinuses, mastoid air cells, and orbits are unremarkable. IMPRESSION: No acute abnormality and in particular no evidence of acute infarct. ACT 112: Negative or not required by law. Electronically signed by: Mark Tellez M.D. 01/06/2023 7:57 AM
[2023-01-06] MEDS: buPROPion SR 150 MG TABCR PO SCH (08:18)
[2023-01-06] MEDS: INSULIN ASPART PER UNIT CHARGE SC SCH ×2 (08:39→11:44)
[2023-01-06] MEDS: NICOTINE 21 MG/24 HR TDSY TD SCH (08:40)
[2023-01-06] MEDS ORDERED: FUROSEMIDE 20 MG TAB PO SCH (09:00)
[2023-01-06] MEDS ORDERED: CHOLECALCIFEROL 1,000 UNITS 25 MCG TAB PO SCH (09:00)
[2023-01-06] MEDS ORDERED: lisinopril 40 MG TAB PO SCH (09:00)
[2023-01-06] MEDS ORDERED: ASPIRIN 81 MG ECTAB PO SCH (09:00)
--- NOTE | 2023-01-06 11:07 | Neurology Consultation ---
Date of Consultation January 06, 2023 Assessment & Plan (1) Stroke-like symptoms: Suspect recrudescence of old stroke symptoms in the setting of URI CTA with mild athero , no significant stenosis MRI with no acute ischemicchanges However it shows extensive microangiopathy with no atrial enlargement , discussed with the patient to watch for palpitation , for shortness of breath Plan Recommend risk factor modifications Recommend risk factor modifications, HTN , DM , HLP Smoking cessation was stressed\ Echocardiogram with no atrial enlargement , discussed with the patient to watch for palpitation , for shortness of breath Continue aspirin 325mg and atorvastatin 40mg as outpatient Consider a Ziopatch and follow up with neurology as outpatient Telehealth Consultation Telehealth Information Telehealth Information: I performed this visit using a real-time telehealth connection between my location and the patients location ([facility]). After connecting through interactive tele-video, patient was identified by name and date of and/or wristband check.Patient (or authorized healthcare solar sales representative and assessor) was informed that this was a telemedicine visit and it was being conducted confidentially over secure lines. My office door was closed and no one else was present in the room with me.Patient (or authorized healthcare solar sales representative and assessor) provided consent to proceed with the visit, expressed an understanding of privacy and security of the telemedicine visit, and gave permission to have a hospital solar sales representative and assessor in the room in order to assist with the visit and to conduct portions of the visit, as needed. I informed the patient (or authorized healthcare solar sales representative and assessor) that I reviewed their record and presented the opportunity for them to ask any questions regarding the visit today. The patient agreed to participate. History of Present Illness Reason for Consultation: stroke-like symptoms Requesting Physician: bandar Schumacher MD Attending Physician: Winsome Johnson MD History of Present Illness The patient is a 67 Y.o male patient with a PMH of chronic tobacco abuse , COPD, HTN , HLP , DM , hx of prior strokes who presents with right sided numbness that has resolved since admission . The patient states that it reolved within 2 hours. Remembers the same symptoms but much worse with his prior stroke in 2020. He denies any associated weakness this time , he denies any associted incoordination , no visual changes,no gait difficulties Reports that it happened in the setting of a URI that he has been dealing with for the last several days. Allergies Allergy/AdvReac Type Severity Reaction Status Date / Time No Known Allergies Allergy Verified 01/05/23 14:58 Home Medications Medication Instructions Recorded Confirmed Type bupropion HCl 150 mg tablet,12 hr 150 mg PO BID 11/24/18 01/05/23 History sustained-release aspirin 81 mg tablet,delayed 81 mg PO DAILY 01/05/23 01/05/23 History release atorvastatin 80 mg tablet (Lipitor) 40 mg PO HS 01/05/23 01/05/23 History cholecalciferol (vitamin D3) 25 25 mcg PO DAILY 01/05/23 01/05/23 History mcg (1,000 unit) capsule (Vitamin D3) diclofenac sodium 1 % topical gel 2 g topical TID PRN Pain 01/05/23 01/05/23 History furosemide 20 mg tablet (Lasix) 10 mg PO DAILY 01/05/23 01/05/23 History lisinopril 40 mg tablet 40 mg PO DAILY 01/05/23 01/05/23 History metformin 500 mg tablet 500 mg PO BID 01/05/23 01/05/23 History Patient History Medical History HLD (hyperlipidemia) GERD (gastroesophageal reflux disease) Diabetes mellitus, type II Tobacco use COPD (chronic obstructive pulmonary disease) Lumbosacral facet joint syndrome Spinal stenosis of lumbar region Lumbago Lumbosacral radiculopathy Lumbosacral spondylosis CVA (cerebral vascular accident) PTSD (post-traumatic stress disorder) Surgical History History of colonoscopy Social History Smoking Status: Current every day smoker Tobacco Type: Cigarettes Age Started Using Tobacco: 19; packs per day: 1; Do You Dip or Chew Tobacco: No; Hx Alcohol Use: No Hx Substance Use: No Preferred Language: Portuguese Communication Ability: Effective Tool Repair Technician Required: No marital status: Single Current Living Situation: Alone current occupational status: retired Other Information That Helps Us Care for You: No Feels Safe at Home: Yes Safety Concerns: Feels Safe At This Time Assistive Devices: CPAP and Glasses Review of Systems Constitutional: Patient denies weight loss, fever, chills, and night sweats Eyes: Patient denies change in vision, tearing, pain, and redness ENT: Patient denies pain, bleeding, does have rhinorrhea and congestion , and dysphagia Cardiovascular: Patient denies chest pain, palpitation, dyspnea at rest, and dyspnea with exertion Respiratory: Patient denies shortness of breath, cough, wheezing, and productive cough GI: Patient denies reflux, pain, constipation, and diarrhea Skin: Patient denies rash, dryness, and itching Allergies/Immune System: Patient denies rhinorrhea, seasonal allergies, reaction to current MEDS, and joint swelling Endocrine: Patient denies weight loss, weight gain, temperature intolerance, and excessive thirst Neurological: All negative unless mentioned in the HPI Physical Exam General NEUROLOGIC EXAMINATION: Mental Status:alert, oriented to time, place, person, normal recent memory, normal remote memory, normal attention span, normal concentration, normal language and normal fund of knowledge Cranial Nerves: CN 2 - no visual defect on confrontation and pupils round, equal, reactive to light CN 3, 4, 6 - extra-ocular movements intact and no nystagmus CN 5 - facial sensation intact CN 7 - no facial asymmetry CN 8 - intact hearing CN 9, 10 - palate symmetric, normal gag CN 11 - good shoulder shrug CN 12 - tongue midline MOTOR: Strength was at least antigravity throughout, Pronator drift was absent and There were no abnormal movements SENSATION: intact and symmetric to pinprick, light touch, vibration and joint position GAIT: stable, no ataxia and can perform tandem walking COORDINATION: no ataxia with finger to nose testing and heel to candelario testing REFLEXES: cannot assess over telemedicine NIH Stroke Scale: 1a. Level of Consciousness: alert = 0 1b. LOC Questions: (month, age): both correct = 0 1c. LOC Commands (open and close eyes, make fist and let go using non-paretic hand): obeys both correctly = 0 2. Best Gaze (eyes open and patient follows examiner's finger or face): normal = 0 3. Visual (visual threat or finger counting in each quadrant): no loss = 0 4. Facial Palsy (show teeth, raise eye brows and squeeze eyes shut, or grimace symmetry in a comatose patient): normal = 0 5a. Motor Arm (extend arm (palms down) to 90 degrees and score drift/movement (10 seconds) - Left: no drift = 0 5b. Motor Arm: (extend arm (palms down) to 90 degrees and score drift/movement (10 seconds) - Right: no drift = 0 6a. Motor Leg (elevate leg 30 degrees and score drift/ movement (5 seconds) - Left: no drift = 0 6b. Motor Leg (elevate leg 30 degrees and score drift/ movement (5 seconds) - Right: no drift = 0 7. Limb Ataxia (finger to nose, heel down candelario): absent = 0 8. Sensory (pin prick to face, arm, trunk and leg, compare side to side): normal = 0 9. Best Language: no aphasia = 0 10. Dysarthria (evaluate speech clarity by patient repeating listed words): normal articulation = 0 11. Extinction and Inattention: no neglect = 0 Total: 0 Results & Data Vital Signs (Past 12 Hours) Vital Signs Pulse Pulse Resp BP Pulse Ox O2 Del Method 01/06/23 08:17 92 H 20 147/85 H 95 Room Air 01/06/23 01:34 82 20 134/80 94 Room Air 01/06/23 00:08 81 20 96 01/06/23 00:00 86 Laboratory Results Laboratory Results - last 24 hr 01/05/23 01/05/23 01/05/23 14:40 14:42 14:43 WBC 9.47 RBC 4.62 L Hgb 13.4 L POC Hgb Hct 40.0 L POC Hct MCV 86.6 MCH 29.0 MCHC 33.5 RDW Std Deviation 39.2 RDW Coeff of Alem 12.4 Plt Count 225 MPV 9.7 Immature Gran % (Auto) 0.4 Neut % (Auto) 61.3 Lymph % (Auto) 28.3 [place] % (Auto) 6.9 Eos % (Auto) 2.6 Baso % (Auto) 0.5 Neut # (Auto) 5.80 Lymph # (Auto) 2.68 [place] # (Auto) 0.65 H Eos # (Auto) 0.25 Baso # (Auto) 0.05 Immature Gran # (Auto) 0.04 PT 10.4 INR 0.9 APTT 27.3 PTT Ratio 1.0 POC Sodium Sodium 136 POC Potassium Potassium 3.9 POC Chloride Chloride 102 Carbon Dioxide 26 POC Total CO2 Anion Gap 8 POC Anion Gap POC BUN BUN 13 Creatinine 1.30 POC Creatinine Est Cr Clr Drug Dosing 66.7 Est GFR ( Amer) 65.9 Est GFR (Non-Af Amer) 56.9 BUN/Creatinine Ratio 10.0 Glucose 151 H POC Glucose 164 H POC Glucose (other) Estimat Average Glucose Hemoglobin A1c Calcium 9.6 POC Ioniz Calcium Marni Magnesium 1.6 L Total Bilirubin 0.4 AST 16 ALT 18 Alkaline Phosphatase 104 Troponin I High Sens 6.6 Total Protein 7.0 Albumin 4.3 Globulin 2.7 Albumin/Globulin Ratio 1.6 Triglycerides Cholesterol LDL Cholesterol, Calc VLDL Cholesterol, Calc HDL Cholesterol Cholesterol/HDL Ratio TSH Free T4 Hepatitis C Ab (EIA) Pending Blood Type O Positive Antibody Screen NEGATIVE 01/05/23 01/05/23 01/06/23 14:45 20:48 04:41 WBC 9.24 RBC 4.71 Hgb 13.6 L POC Hgb 13.9 L Hct 41.1 L POC Hct 41 L MCV 87.3 MCH 28.9 MCHC 33.1 RDW Std Deviation 39.1 RDW Coeff of Alem 12.2 Plt Count 213 MPV 9.9 Immature Gran % (Auto) Neut % (Auto) Lymph % (Auto) [place] % (Auto) Eos % (Auto) Baso % (Auto) Neut # (Auto) Lymph # (Auto) [place] # (Auto) Eos # (Auto) Baso # (Auto) Immature Gran # (Auto) PT INR APTT PTT Ratio POC Sodium 137 Sodium 135 L POC Potassium 3.9 Potassium 4.1 POC Chloride 100 L Chloride 102 Carbon Dioxide 25 POC Total CO2 23 L Anion Gap 8 POC Anion Gap 18.0 POC BUN 13 BUN 14 Creatinine 1.25 POC Creatinine 1.3 Est Cr Clr Drug Dosing 69.4 Est GFR ( Amer) 69.1 Est GFR (Non-Af Amer) 59.6 BUN/Creatinine Ratio 11.2 Glucose 123 H POC Glucose 106 H POC Glucose (other) 153 H Estimat Average Glucose 151 Hemoglobin A1c 6.9 H Calcium 9.4 POC Ioniz Calcium Marni 1.20 Magnesium 1.9 Total Bilirubin AST ALT Alkaline Phosphatase Troponin I High Sens Total Protein Albumin Globulin Albumin/Globulin Ratio Triglycerides 130 Cholesterol 149 LDL Cholesterol, Calc 83 VLDL Cholesterol, Calc 26 HDL Cholesterol 40 Cholesterol/HDL Ratio 3.7 TSH 4.917 H Free T4 0.74 Hepatitis C Ab (EIA) Blood Type Antibody Screen 01/06/23 07:38 WBC RBC Hgb POC Hgb Hct POC Hct MCV MCH MCHC RDW Std Deviation RDW Coeff of Alem Plt Count MPV Immature Gran % (Auto) Neut % (Auto) Lymph % (Auto) [place] % (Auto) Eos % (Auto) Baso % (Auto) Neut # (Auto) Lymph # (Auto) [place] # (Auto) Eos # (Auto) Baso # (Auto) Immature Gran # (Auto) PT INR APTT PTT Ratio POC Sodium Sodium POC Potassium Potassium POC Chloride Chloride Carbon Dioxide POC Total CO2 Anion Gap POC Anion Gap POC BUN BUN Creatinine POC Creatinine Est Cr Clr Drug Dosing Est GFR ( Amer) Est GFR (Non-Af Amer) BUN/Creatinine Ratio Glucose POC Glucose 125 H POC Glucose (other) Estimat Average Glucose Hemoglobin A1c Calcium POC Ioniz Calcium Marni Magnesium Total Bilirubin AST ALT Alkaline Phosphatase Troponin I High Sens Total Protein Albumin Globulin Albumin/Globulin Ratio Triglycerides Cholesterol LDL Cholesterol, Calc VLDL Cholesterol, Calc HDL Cholesterol Cholesterol/HDL Ratio TSH Free T4 Hepatitis C Ab (EIA) Blood Type Antibody Screen Diagnostic Findings Head CT 01/05/23 14:33 CT angio head w con, CT head/brain wo con CLINICAL HISTORY: neuro deficit, acute stroke suspected TECHNIQUE: Contiguous axial CT images of the head were acquired from the base of the skull to the vertex without intravenous contrast administration. CT angiography of the head was performed following intravenous administration of iodinated contrast. Coronal and sagittal MIPS were obtained from the axial data set and were submitted for review. Automated dose lowering techniques and/or adjustment according to patient size were utilized for this examination. All measurements were calculated based on NASCET criteria. CT DOSE: 1325.73 mGy.cm Comparison: None available at the time of this dictation. FINDINGS: CT head: There is no acute intracranial hemorrhage or evidence of acute territorial infarction. No shift of the midline structures, mass effect, or ext ra-axial abnormalities are shown. A few punctate regions of decreased density may represent old lacunar infarcts and changes of microvascular ischemic white matter disease. CTA Head: The anterior and posterior cerebral circulations are patent. No hemodynamically significant stenosis, aneurysm, dissection, or arteriovenous malformation is shown. IMPRESSION: There are a few punctate foci of decreased attenuation in the brain which may represent old infarcts, although punctate acute infarct cannot be entirely excluded. No significant vascular stenosis is seen. Assessment of stenosis of the internal carotid arteries is based on NASCET criteria. ACT 112: Negative or not required by law. Electronically signed by: Mark Tellez M.D. 01/05/2023 3:10 PM Head CTA 01/05/23 14:33 CT angio head w con, CT head/brain wo con CLINICAL HISTORY: neuro deficit, acute stroke suspected TECHNIQUE: Contiguous axial CT images of the head were acquired from the base of the skull to the vertex without intravenous contrast administration. CT angiography of the head was performed following intravenous administration of iodinated contrast. Coronal and sagittal MIPS were obtained from the axial data set and were submitted for review. Automated dose lowering techniques and/or adjustment according to patient size were utilized for this examination. All measurements were calculated based on NASCET criteria. CT DOSE: 1325.73 mGy.cm Comparison: None available at the time of this dictation. FINDINGS: CT head: There is no acute intracranial hemorrhage or evidence of acute territorial infarction. No shift of the midline structures, mass effect, or extra-axial abnormalities are shown. A few punctate regions of decreased density may represent old lacunar infarcts and changes of microvascular ischemic white matter disease. CTA Head: The anterior and posterior cerebral circulations are patent. No hemodynamically significant stenosis, aneurysm, dissection, or arteriovenous malformation is shown. IMPRESSION: There are a few punctate foci of decreased attenuation in the brain which may represent old infarcts, although punctate acute infarct cannot be entirely excluded. No significant vascular stenosis is seen. Assessment of stenosis of the internal carotid arteries is based on NASCET criteria. ACT 112: Negative or not required by law. Electronically signed by: Mark Tellez M.D. 01/05/2023 3:10 PM Neck CTA 01/05/23 14:33 CT ANGIOGRAPHY OF THE NECK WITH CONTRAST CLINICAL HISTORY: neuro deficit, acute stroke suspected COMPARISON STUDY: No previous studies for comparison. Technique: CT angiography of the carotid and vertebral arteries was obtained using [employer] and 3D reconstruction on an independent workstation. NASCET criteria was utilized. Automated exposure control was utilized for the study. A dose lowering technique was utilized adhering to the principles of ALARA. Findings: Emphysema is incidentally noted within the visualized lung apices. There is no cervical lymphadenopathy. No cervical spine fractures are noted. There is no stenosis or dissection within the bilateral common carotid, cervical internal carotid or vertebral arteries. There is mild plaque within bilateral carotid bifurcations without stenosis. There is no aneurysm within the neck. IMPRESSION: 1. No stenosis or dissection within the bilateral common carotid, cervical internal carotid or vertebral arteries. 2. Emphysema. ACT 112: Negative or not required by law. Electronically signed by: Cesario Danielson M.D. 01/05/2023 3:05 PM Brain MRI 01/05/23 18:29 MR brain wo con CLINICAL HISTORY: stroke symptoms TECHNIQUE: Multiplanar and multisequence MR images of the brain were obtained without intravenous contrast. Comparison: Comparison is made to CTA head and neck 01/05/2023 FINDINGS: No abnormal restricted diffusion is identified. Foci of T2 and FLAIR hyperintensity are noted in the paraventricular areas consistent with chronic small vessel ischemic disease. Ex vacuo ventriculomegaly and sulcal enlargement is noted compatible with diffuse volume loss. No mass is seen. There is no mass effect or midline shift. There is no evidence of acute intraparenchymal hemorrhage. No extra axial fluid collections are seen. The corpus callosum, pituitary gland, and cerebellar tonsils appear grossly unremarkable. Flow voids of the major intracranial arterial vessels are identified. The imaged portions of the paranasal sinuses, mastoid air cells, and orbits are unremarkable. IMPRESSION: No acute abnormality and in particular no evidence of acute infarct. ACT 112: Negative or not required by law. Electronically signed by: Mark Tellez M.D. 01/06/2023 7:57 AM
[2023-01-06] MEDS ORDERED: STROKE PATIENT DISCHARGE STA (13:17)
--- NOTE | 2023-01-06 13:21 | Discharge Summary ---
Date of Service January 06, 2023 Admission HPI Per Admitting Provider Patient is 67 y/o M with PMH CVA in 2020, HTN, HLD, DM II, COPD, GERD, tobacco use presented to ER with complaint of right finger and right toe numbness. History obtained from patient and outpatient chart review. Patient reports today had sudden onset of tingling/numbness sensation to all of right fingers and all of his toes on right foot that started at 11:50. Patient reports paresthesia symptoms continued until 14:30 today. Patient states today while standing he did feel a little "woozy". Denies any associated headache, syncope, vision changes, extremity weakness, speech changes. Reports intermittent left sided chest pain over past 6 months that can occur at rest or exertion. Pain described as sharp and lasts approximately 5-10 minutes and resolves. Followed with cardiology, Dr [facility] [place] and had negative stress test. States had episode left chest discomfort this morning that lasted 10 minutes and resolved and not associated with SOB, N/V, palpitations. No recurrent CP. Has ch ronic cough, intermittently productive sputum. denies increased cough or sputum production. Denies fever/chills, diaphoresis, N/V/D/C, LOPEZ, vision changes, neck pain, SOB, palpitations, rhinorrhea, abdominal pain, extremity weakness, extremity edema, rashes, urinary symptoms. Outpatient chart review: 11/26/2022 had negative dobutamine stress echo for ischemia. EF: 67%. Is to have implanted loop recorder 01/25/[address] Coker to further assess for a-fib. 06/12/2022 MRI brain: Bilateral cerebellar hemisphere small remote territorial infarcts. Subtle sulcal susceptibility overlying bilateral cerebral hemispheres, which may represent developing superficial siderosis 08/21/2020 MRI brain: Multifocal patchy foci of acute/early subacute ischemia left lentiform nucleus, frye radiata, left frontal subcortical white matter without significant mass effect or acute intracranial hemorrhage. Admission Exam Per Admitting Provider General: no distress, WDWN Head: normocephalic, atraumatic Eyes: PERRL, EOM's intact, conjunctiva non-injected, anicteric ENT: normal inspection external ears, nose, mucous membranes moist Neck: supple, trachea midline Lungs: clear, no respiratory distress, no wheezing/rhonchi/rales CV: RRR, no murmur, no pretibial edema Abd: normal BS, soft, non-tender Ext: no cyanosis, no calf tenderness Neuro: A&O x 3, normal affect, EOMs intact. No nystagmus, facial sensation is intact and symmetric, face is strong and symmetric, hearing grossly intact, soft palate elevates symmetrically, no dysarthria, shoulder shrug intact, tongue is midline, normal movement, no fasciculations, strength 5/5 throughout bilateral upper and lower extremities Skin: warm, dry Principal Diagnosis Strokelike symptoms Discharge Exam GENERAL: Alert and oriented x3. NAD, on RA. HEENT: No pallor, no icterus. Pupils equal, round and reactive to light. Oral mucosa moist. NECK: No JVD, no neck masses. HEART: S1 and S2 heard. Regular rate and rhythm. No murmur, no gallop. RESPIRATORY SYSTEM: Normal AP diameter. No accessory muscle use. No wheezing, no crackles. ABDOMEN: Soft, bowel sounds present, nontender, no distention. CENTRAL NERVOUS SYSTEM: No facial droop. Speech is clear. Obeys simple comman ds. Moves extremities. EXTREMITIES: No edema, no erythema seen. Discharge Data Allergies Allergy/AdvReac Type Severity Reaction Status Date / Time No Known Allergies Allergy Verified 01/05/23 14:58 Consultations 01/05/23 15:17 ED Decision to Admit Stat 01/05/23 18:29 Consult Neurology Routine Ordered Studies 01/05/23 14:33 CT angio head w con Stat CT angio neck with con Stat CT head/brain wo con Stat 01/05/23 18:29 MR brain wo con Routine Hospital Course (1) Stroke-like symptoms: Plan Patient admitted with strokelike symptoms with right finger/right toe numbness. Neurology evaluated, likely recrudescence of old stroke symptoms. Discussed with neurology, aspirin 325 mg daily, continue with home statin. Follow-up with neurology as an outpatient. Patient with no further numbness or tingling, reports resolution of his admitting complaints. Echo reviewed, no shunt. He is being discharged with following instruction at the point of discharge: Follow-up with your primary care physician within a week time and likely you will need labs CBC/CMP/magnesium/phosphorus. You will need outpatient Zio patch monitoring, coordinate with your PCP office to set up the test. You will need follow-up with neurology in the next 2 to 4 weeks, coordinate with your PCP office to set up the referral. Neurology evaluated you while in the hospital, your aspirin is increased to 325 mg daily, continue with your atorvastatin 40 mg daily. Strongly recommended against smoking tobacco. Take your medications as prescribed. Please make sure that you are able to get your medications today by calling your pharmacy before you leave the hospital so that your treatment continuity is not broken. Home Health Attestation I certify that this patient is under my care and that I, or a physicians embalmer assistant working with me, had a face to-face encounter that meets the home health [id number] encounter requirements with this patient. The encounter with the patient was in whole, or in part, for the following medical condition, which is the primary reason for home health care (list medical condition): I certify that, based on my findings, the following services are medically necessary home health services: My clinical findings support the need for the above services because: Further, I certify that my clinical findings support that this patient is homebound (i.e. absences from home require considerable and taxing effort and are for medical reasons or spiritism services or infrequently or of short duration when for other reasons) because: Certification for Home Health Services: Based on the above findings, I certify that this patient is confined to the home and needs intermittent long term care, physical therapy and/or speech therapy or continues to need occupational therapy. The patient is under my care, and I have initiated the establishment of the plan of care. This patient will be followed by a physician who will periodically review the plan of care. Total Time Total Time Spent Total Time Spent (In Minutes): 45 Discharge Plan Discharge Items Patient Disposition: Home - Self-Care Reason For Visit: STROKE LIKE SYMPTOMS Discharge Diagnosis: Strokelike symptoms Activity: Resume your previous activity Non-emergency contact: Primary Care Provider Call non-emergency contact if: you have any medication questions and your symptoms worsen Follow-up/Referrals: Sarabjit Mata MD [Primary Care Provider] - Diet: Carb Consistent or DM2 and Heart Healthy Addtl Attending Provider Instructions: Follow-up with your primary care physician within a week time and likely you will need labs CBC/CMP/magnesium/phosphorus. You will need outpatient Zio patch monitoring, coordinate with your PCP office to set up the test. You will need follow-up with neurology in the next 2 to 4 weeks, coordinate with your PCP office to set up the referral. Neurology evaluated you while in the hospital, your aspirin is increased to 325 mg daily, continue with your atorvastatin 40 mg daily. Strongly recommended against smoking tobacco. Take your medications as prescribed. Please make sure that you are able to get your medications today by calling your pharmacy before you leave the hospital so that your treatment continuity is not broken. Pending Studies at Discharge: No Stand-Alone Forms: My [facility], Smoking Cessation Medications and DC Order Prescriptions: New nicotine [Nicoderm CQ] 21 mg/24 hr Patch 24 Hour 21 mg transdermal QAM Qty: 28 0RF aspirin 325 mg tablet,delayed release (DR/EC) 325 mg PO DAILY Qty: 30 0RF Continued bupropion HCl 150 mg tablet sustained-release 12 hr 150 mg PO BID metformin 500 mg Tablet 500 mg PO BID atorvastatin [Lipitor] 80 mg Tablet 40 mg PO HS furosemide [Lasix] 20 mg Tablet 10 mg PO DAILY lisinopril 40 mg Tablet 40 mg PO DAILY cholecalciferol (vitamin D3) [Vitamin D3] 25 mcg (1,000 unit) Capsule 25 mcg PO DAILY diclofenac sodium [Voltaren] 1 % Gel 2 g TOPICAL TID PRN (Reason: Pain) Discontinued aspirin 81 mg Tablet,Delayed Release (Dr/Ec) 81 mg PO DAILY Discharge Orders: Discharge Order (Routine); Ordered 01/06/23 Ordered By: Winsome Mace/Other Patient Handouts: Exercise: Why Fitness Matters, Diabetes: Meal Planning, Type 2 Diabetes Admission Data Admit Date/Time: 01/05/23 15:48 Attending Provider: Winsome Johnson Admit Provider: Meche Luther Primary Care Provider: Sarabjit Mata Other Providers: Meche Luther; Huseyin De Los Santos; [facility]
== END 2023-01-06 13:34 | disposition home or self-care (01) ==
LOC: EDINP 13:54 → ED 13:54 → SUATTDRO 15:48 → EDINP 18:30